=== PATIENT | male | born 1975 | race African-American/Black ===

== ENCOUNTER 2016-12-12 11:30 | Emergency (ER) | payer OTHER ==
[~2016-12-12] VITALS: Ht 177.8 cm; Wt 108.0 kg
[~2016-12-12 11:30] MED LIST: ALBU17IN INH; AMLO10TA2 PO; ASPI325T PO; FLEC1TAB PO; FLEC50TA PO; LISI-538 PO
[2016-12-12 11:37] VITALS: BP 151/84
[2016-12-12] MEDS ORDERED: LISI40TAB PO (11:44)
[2016-12-12] MEDS ORDERED: ZOLM2.5T PO (11:44)
[2016-12-12] MEDS ORDERED: OMEP20CA3 PO (11:44)
[2016-12-12] MEDS ORDERED: MIRA3350 PO (11:44)
[2016-12-12] MEDS ORDERED: TOPI1CAP4 PO (11:44)
[2016-12-12] MEDS ORDERED: VITASPR PO (11:44)
[2016-12-12] MEDS ORDERED: PRED20TA PO (12:08)
[2016-12-12] MEDS ORDERED: NAPR500T PO (12:08)
[2016-12-12] MEDS ORDERED: NAPROXEN 250 MG TAB PO ONE (12:15)
== END 2016-12-12 12:29 | disposition home or self-care (01) ==
LOC: M ED 12:02
DX: J01.90 Acute sinusitis, unspecified (principal); G43.909 Migraine, unspecified, not intractable, without status migrainosus; Z79.899 Other long term (current) drug therapy; Z79.82 Long term (current) use of aspirin; Z91.013 Allergy to seafood

== ENCOUNTER → 2017-01-03 | Outpatient (CLI) | payer OTHER ==
[~2017-01-03] MED LIST changes: +LISI40TAB PO; +MIRA3350 PO; +NAPR500T PO; +OMEP20CA3 PO; +PRED20TA PO; +TOPI1CAP4 PO; +VITASPR PO; +ZOLM2.5T PO
--- NOTE | 2017-01-03 18:04 | REP ---
MAXILLOFACIAL CT WITHOUT CONTRAST: HISTORY: Chronic sinusitis. Mild mucosal thickening is present in the left maxillary sinus. Minimal mucosal thickening is present in the ethmoid, left sphenoid and right maxillary sinuses. The remaining sinuses are clear. Mucosal thickening involves the left ostiomeatal unit. The right ostiomeatal unit is patent. The middle and inferior nasal turbinates are partially paradoxical. There is mario bullosa of the left middle nasal turbinate. The nasal septum is midline. A small spur is present arising from the right side of the nasal septum. The cribriform plate, medial london of the orbits and optic canals are intact. The carotid canals form a segment of the posterolateral london of the sphenoid sinus. The sphenoid sinus septum inserts into the right internal carotid canal wall. Soft tissue density is present in the left nasal passage consistent with polyps. IMPRESSION: 1. Sinus mucosal thickening as described above. 2. There is soft tissue density in the left nasal passage consistent with polyps. Signed by Papito Amezquita MD 01/03/2017 06:09 P
== END ==
LOC: M RAD 17:11
PROVIDERS: ATTEND Otolaryngology
DX: J32.4 Chronic pansinusitis (principal)

== ENCOUNTER → 2017-06-19 | Outpatient (CLI) | payer OTHER ==
[~2017-06-19] MED LIST changes: +CHLO125TA PO; +FISH1000 PO; +NEXI1CAP4 PO; +VITA100067 PO; +VITA250011 SL
--- NOTE | 2017-06-20 11:47 | REP ---
Radionuclide thyroid uptake and scan: History: Hyperthyroidism. Technique: 320.0 Microcuries of I 123 sodium iodide is ingested and functional thyroid images and thyroid uptake values are acquired. Findings: 24 uptake value is low at 9.4% (25 35%). Functional thyroid images show no cold or warm nodule. Left lobe is a little larger than right. Overall decreased uptake. Impression: No cold or warm nodule seen. Decreased thyroid uptake. Signed by Urbano Gunter MD 06/20/2017 11:39 A
== END ==
LOC: M RAD 08:35
PROVIDERS: ATTEND Family Medicine
DX: E05.90 Thyrotoxicosis, unspecified without thyrotoxic crisis or storm (principal)
CPT/HCPCS: 78012; A9516

== ENCOUNTER → 2018-02-28 | Outpatient (CLI) | payer OTHER | LOC: M WUC 11:11 | DX: M79.672 Pain in left foot (principal) | CPT/HCPCS: 73630 ==

== ENCOUNTER → 2018-03-19 | Outpatient (CLI) | payer OTHER | LOC: M RAD 07:41 | DX: I10 Essential (primary) hypertension (principal) ==

== ENCOUNTER 2018-04-30 16:08 | Emergency (ER) | payer OTHER ==
[2018-04-30] MEDS: NS 1,000 ML IV (17:57)
[2018-04-30] MEDS: diphenhydrAMINE INJ 50MG/ML VIAL (J1200) IV (17:57)
[2018-04-30] MEDS: METOCLOPRAMIDE INJ 10MG/2ML VIAL (J2765) IV (17:57)
[2018-04-30] MEDS: KETOROLAC 30 MG/ML VIAL (J1885) IV (17:58)
[2018-04-30 18:01] LABS: BASO % 0.6 % (0.0-1.0); EOS # 0.4 10^3/uL (0.0-0.50); HEMATOCRIT 46.8 % (42.0-52.0); IMMATURE GRANULOCYTE % 0.2 % (0-3.0); LYMPH # 1.9 10^3/uL (1.5-4.5); LYMPH % 36.1 % (24.0-44.0); MEAN CORPUSCULAR HEMOGLOBIN 25.5 pg (27.0-33.0); MEAN CORPUSCULAR HGB CONC 32.1 g/dl (32.0-36.5); MEAN CORPUSCULAR VOLUME 79.6 fl (80.0-96.0); MONO # 0.7 10^3/uL (0.0-0.8); MONO % 13.9 % (0.0-5.0); NEUTROPHILS # 2.2 10^3/uL (1.8-7.7); NEUTROPHILS % 41.2 % (36.0-66.0); PLATELET COUNT, AUTOMATED 186 10^3/uL (150-450); RED BLOOD COUNT 5.88 10^6/uL (4.30-6.10); RED CELL DISTRIBUTION WIDTH 15.9 % (11.5-14.5); WHITE BLOOD COUNT 5.3 10^3/uL (4.0-10.0)
[2018-04-30 18:40] LABS: ANION GAP 9 MEQ/L (8-16); BLOOD UREA NITROGEN 21 MG/DL (7-18); CALCIUM LEVEL 8.4 MG/DL (8.5-10.1); CARBON DIOXIDE LEVEL 29 MEQ/L (21-32); CHLORIDE LEVEL 106 MEQ/L (98-107); CREATININE FOR GFR 1.44 MG/DL (0.70-1.30); ETHYL ALCOHOL (ETHANOL) 0.003 % (0.000-0.010); GLOMERULAR FILTRATION RATE > 60.0 (>60); GLUCOSE, FASTING 92 MG/DL (70-100); POTASSIUM SERUM 3.9 MEQ/L (3.5-5.1); SALICYLATE LEVEL < 1.7 MG/DL (5.0-30.0); SODIUM LEVEL 144 MEQ/L (136-145)
[2018-04-30 18:50] LABS: ACETAMINOPHEN LEVEL < 2.0 UG/ML (10.0-30.0)
== END 2018-04-30 19:32 | disposition home or self-care (01) ==
LOC: M ED 16:08
DX: G43.409 Hemiplegic migraine, not intractable, without status migrainosus (principal); I48.91 Unspecified atrial fibrillation; I10 Essential (primary) hypertension; E78.00 Pure hypercholesterolemia, unspecified; J45.909 Unspecified asthma, uncomplicated; Z72.0 Tobacco use; Z79.82 Long term (current) use of aspirin; Z79.899 Other long term (current) drug therapy; Z91.013 Allergy to seafood
CPT/HCPCS: J1200

== ENCOUNTER → 2018-07-12 | Outpatient (CLI) | payer OTHER | LOC: M RAD 16:54 | DX: R91.1 Solitary pulmonary nodule (principal) | CPT/HCPCS: 71250 ==

== ENCOUNTER 2018-07-20 14:51 | Emergency (ER) | payer OTHER ==
[2018-07-20] MEDS: ONDANSETRON 4 MG ORAL DISINTEGRATING TAB (Q0162 PER 1MG) PO (16:40)
[2018-07-20 16:47] LABS: HEMATOCRIT 47.5 % (42.0-52.0); HEMOGLOBIN 15.2 g/dl (13.5-17.5); MEAN CORPUSCULAR HEMOGLOBIN 25.3 pg (27.0-33.0); PLATELET COUNT, AUTOMATED 242 10^3/uL (150-450); RED BLOOD COUNT 6.01 10^6/uL (4.30-6.10); RED CELL DISTRIBUTION WIDTH 15.4 % (11.5-14.5); WHITE BLOOD COUNT 7.4 10^3/uL (4.0-10.0)
[2018-07-20 17:06] LABS: ADD MANUAL DIFFER YES; DIFF SLIDE NUMBER 175; POSITIVE MORPH POS FLAG
[2018-07-20 17:09] LABS: ALBUMIN 4.1 GM/DL (3.2-5.2); ALBUMIN/GLOBULIN RATIO 1.24 (1.00-1.93); ALKALINE PHOSPHATASE 53 U/L (45-117); ALT/SGPT 44 U/L (12-78); AMYLASE 44 U/L (25-115); ANION GAP 8 MEQ/L (8-16); AST/SGOT 27 U/L (7-37); BILIRUBIN,DIRECT < 0.1 MG/DL (0.0-0.2); BILIRUBIN,TOTAL 0.3 MG/DL (0.2-1.0); BLOOD UREA NITROGEN 17 MG/DL (7-18); CALCIUM LEVEL 9.2 MG/DL (8.5-10.1); CARBON DIOXIDE LEVEL 31 MEQ/L (21-32); CHLORIDE LEVEL 105 MEQ/L (98-107); CREATININE FOR GFR 1.27 MG/DL (0.70-1.30); GLOMERULAR FILTRATION RATE > 60.0 (>60); GLUCOSE, FASTING 92 MG/DL (70-100); LIPASE 188 U/L (73-393); POTASSIUM SERUM 4.4 MEQ/L (3.5-5.1); SODIUM LEVEL 144 MEQ/L (136-145); TOTAL PROTEIN 7.4 GM/DL (6.4-8.2)
[2018-07-20 17:26] LABS: ANISOCYTOSIS 1+; ATYPICAL LYMPH 9 % (0-5); BASOPHILS 1 % (0-4); EOSINOPHILS 5 % (0-5); LYMPHOCYTES 35 % (16-52); MICROCYTOSIS 1+; MONOCYTES 5 % (0-8); NEUTROPHILS 45 % (35-75); PLATELET ESTIMATE NORMAL (NORMAL)
== END 2018-07-20 17:49 | disposition home or self-care (01) ==
LOC: M ED 14:51
DX: R11.0 Nausea (principal); R19.7 Diarrhea, unspecified; R51 Headache; I10 Essential (primary) hypertension; I48.91 Unspecified atrial fibrillation; J45.909 Unspecified asthma, uncomplicated; G47.30 Sleep apnea, unspecified; R09.81 Nasal congestion; K21.9 Gastro-esophageal reflux disease without esophagitis; F43.10 Post-traumatic stress disorder, unspecified; Z79.82 Long term (current) use of aspirin; Z79.899 Other long term (current) drug therapy; Z91.013 Allergy to seafood
CPT/HCPCS: Q0162

== ENCOUNTER → 2018-07-22 | Outpatient (REF) | payer OTHER | LOC: M LAB REF 19:20 | DX: R19.7 Diarrhea, unspecified (principal) ==

== ENCOUNTER 2018-11-27 11:23 | Emergency (ER) | payer OTHER ==
[~2018-11-27] VITALS: Ht 177.8 cm; Wt 104.5 kg
[~2018-11-27 11:23] MED LIST changes: +ADV250INH INH; -AMLO10TA2 PO; +AMLO10TA5 PO; +FLEC50HA PO; -FLEC50TA PO; +LISI40TA PO; -LISI40TAB PO; +LOSA100T50 PO; +MELO15TA28 PO; +NAPR-50 PO; -NAPR500T PO; +OMEP40CA2 PO; +REGL10TA6 PO; +VITA500T PO; +ZOFR4TAB14 PO
[2018-11-27] MEDS ORDERED: VIAG100T (11:33)
[2018-11-27] MEDS ORDERED: OMEP20CA3 (11:33)
[2018-11-27] MEDS ORDERED: TOPI1CAP8 PO (11:33)
[2018-11-27 12:15] LABS: BASO % 0.5 % (0.0-1.0); EOS # 0.2 10^3/uL (0.0-0.50); EOS % 2.7 % (0.0-3.0); HEMATOCRIT 46.9 % (42.0-52.0); HEMOGLOBIN 15.5 g/dl (13.5-17.5); LYMPH # 3.3 10^3/uL (1.5-4.5); MEAN CORPUSCULAR HEMOGLOBIN 25.5 pg (27.0-33.0); MONO # 0.4 10^3/uL (0.0-0.8); MONO % 6.7 % (0.0-5.0); NEUTROPHILS # 2.3 10^3/uL (1.8-7.7); NEUTROPHILS % 36.9 % (36.0-66.0); PLATELET COUNT, AUTOMATED 218 10^3/uL (150-450); RED BLOOD COUNT 6.09 10^6/uL (4.30-6.10); WHITE BLOOD COUNT 6.3 10^3/uL (4.0-10.0)
--- NOTE | 2018-11-27 12:27 | REP ---
Clinical: Migraine headaches with dizziness . Comparison: 04/30/2018 . Findings: The ventricles, sulci, and cisterns are normal in position and appearance. Bunch-white differentiation is maintained. No acute intracranial hemorrhage, mass/mass effect, pathology or trauma/injury. No evidence for acute infarction. No extra-axial fluid collection. Calvarium is intact. Paranasal sinuses and mastoid air cells are clear. Impression: Normal noncontrast head CT. No evidence for acute intracranial pathology or trauma/injury. Electronically Signed by Angel Brunner MD 11/27/2018 12:18 P
[2018-11-27 12:41] LABS: ALBUMIN 4.5 GM/DL (3.2-5.2); ALT/SGPT 53 U/L (12-78); AMYLASE 47 U/L (25-115); BILIRUBIN,DIRECT 0.2 MG/DL (0.0-0.2); BILIRUBIN,TOTAL 0.6 MG/DL (0.2-1.0); BLOOD UREA NITROGEN 16 MG/DL (7-18); CALCIUM LEVEL 9.1 MG/DL (8.5-10.1); CARBON DIOXIDE LEVEL 31 MEQ/L (21-32); CHLORIDE LEVEL 103 MEQ/L (98-107); CREATININE FOR GFR 1.24 MG/DL (0.70-1.30); GLOMERULAR FILTRATION RATE > 60.0 (>60); GLUCOSE, FASTING 88 MG/DL (70-100); LIPASE 187 U/L (73-393); POTASSIUM SERUM 3.9 MEQ/L (3.5-5.1); SODIUM LEVEL 140 MEQ/L (136-145); TOTAL PROTEIN 7.8 GM/DL (6.4-8.2)
[2018-11-27 12:44] LABS: INFLUENZA A AMPLIFICATION NEGATIVE (NEGATIVE); INFLUENZA B AMPLIFICATION NEGATIVE (NEGATIVE)
[2018-11-27 13:28] VITALS: BP 168/90
--- NOTE | 2018-11-27 21:04 | ECGEPIP ---
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
== END 2018-11-27 13:29 | disposition home or self-care (01) ==
LOC: M ED 11:23
DX: G43.909 Migraine, unspecified, not intractable, without status migrainosus (principal); I10 Essential (primary) hypertension; I48.91 Unspecified atrial fibrillation; K21.9 Gastro-esophageal reflux disease without esophagitis; F43.10 Post-traumatic stress disorder, unspecified; Z79.899 Other long term (current) drug therapy; Z79.82 Long term (current) use of aspirin; Z91.013 Allergy to seafood

== ENCOUNTER 2020-03-19 12:31 | Emergency (ER) | payer OTHER ==
[~2020-03-19] VITALS: Ht 170.2 cm; Wt 117.0 kg
[~2020-03-19 12:31] MED LIST changes: -AMLO10TA5 PO; +AMLO1TAB25 PO; +ASPI-1 PO; -ASPI325T PO; -NAPR-50 PO; +NAPR-837 PO; +OMEP1CAP73; +OMEP1CAP73 PO; -OMEP20CA3 PO; -OMEP40CA2 PO; +OMEP40CA97 PO; +TOPI1CAP8 PO; +VIAG100T; +VITA-243 PO; -VITA500T PO; -ZOLM2.5T PO; +ZOLM2.5T20 PO
[2020-03-19] MEDS ORDERED: FERR1TAB8 PO (13:10)
[2020-03-19] MEDS ORDERED: AMLO1TAB24 (13:10)
[2020-03-19] MEDS ORDERED: ATOR1TAB19 (13:10)
[2020-03-19] MEDS ORDERED: NITROGLYCERIN 0.4 MG SUBL TABLET SL PRN (13:15)
[2020-03-19 13:17] LABS: BASO % 0.4 % (0.0-1.0); EOS # 0.3 10^3/uL (0.0-0.5); EOS % 4.3 % (0.0-3.0); HEMATOCRIT 52.4 % (42.0-52.0); HEMOGLOBIN 16.8 g/dl (13.5-17.5); LYMPH # 3.2 10^3/uL (1.5-5.0); LYMPH % 44.6 % (24.0-44.0); MEAN CORPUSCULAR HEMOGLOBIN 25.1 pg (27.0-33.0); MEAN CORPUSCULAR HGB CONC 32.1 g/dl (32.0-36.5); MEAN CORPUSCULAR VOLUME 78.2 fl (80.0-96.0); MONO # 0.5 10^3/uL (0.0-0.8); MONO % 7.4 % (0.0-5.0); NEUTROPHILS # 3.1 10^3/uL (1.5-8.5); NEUTROPHILS % 43.2 % (36.0-66.0); PLATELET COUNT, AUTOMATED 235 10^3/uL (150-450); WHITE BLOOD COUNT 7.2 10^3/uL (4.0-10.0)
[2020-03-19 13:28] VITALS: BP 149/95
[2020-03-19 13:36] LABS: BLOOD UREA NITROGEN 20 MG/DL (7-18); CALCIUM LEVEL 9.6 MG/DL (8.5-10.1); CARBON DIOXIDE LEVEL 31 MEQ/L (21-32); CHLORIDE LEVEL 102 MEQ/L (98-107); CREATININE FOR GFR 1.37 MG/DL (0.70-1.30); GLOMERULAR FILTRATION RATE > 60.0 (>60); GLUCOSE, FASTING 97 MG/DL (70-100); POTASSIUM SERUM 3.6 MEQ/L (3.5-5.1); SODIUM LEVEL 137 MEQ/L (136-145)
[2020-03-19] MEDS ORDERED: ACETAMINOPHEN 325 MG TAB PO ONE (13:45)
[2020-03-19 13:46] LABS: FREE T4 0.98 NG/DL (0.76-1.46); MAGNESIUM LEVEL 2.2 MG/DL (1.8-2.4); THYROID STIMULATING HORMONE 4.56 uIU/ML (0.358-3.740)
--- NOTE | 2020-03-19 14:21 | REP ---
REASON FOR EXAM: Chest pain. The latest prior for comparison is 04/16/2018. FINDINGS: The technique utilized in obtaining the radiograph has magnified the cardiac silhouette and accentuated the interstitial markings. The superior mediastinal structures are midline. The cardiac silhouette is unremarkable in size, shape, and position. The diaphragmatic surfaces of the lungs are regular, and the costophrenic angles are clear. The pulmonary osullivan are clear. The imaged osseous structures are intact. IMPRESSION: There is no acute cardiopulmonary disease. Electronically Signed by Mata Driscoll DO 03/19/2020 03:05 P
[2020-03-19] MEDS ORDERED: MORPHINE 2 MG/ML 1ML VIAL (J2270) IV PRN (15:45)
[2020-03-19 16:00] LABS: ALBUMIN 4.5 GM/DL (3.2-5.2); BILIRUBIN,DIRECT 0.2 MG/DL (0.0-0.2); BILIRUBIN,TOTAL 0.5 MG/DL (0.2-1.0); TOTAL PROTEIN 7.6 GM/DL (6.4-8.2)
[2020-03-19 17:41] LABS: ERYTHROCYTE SEDIMENTATION RATE 1 mm/hr (0-15)
[2020-03-19 19:50] VITALS: BP 145/85
--- NOTE | 2020-03-20 08:03 | ECGEPIP ---
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
--- NOTE | 2020-03-20 08:04 | ECGEPIP ---
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
--- NOTE | 2020-03-20 08:04 | ECGEPIP ---
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
--- NOTE | 2020-03-20 08:06 | ECGEPIP ---
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
--- NOTE | 2020-03-20 08:10 | ECGEPIP ---
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
== END 2020-03-19 20:00 | disposition home or self-care (01) ==
LOC: M ED 12:31
DX: R07.9 Chest pain, unspecified (principal); I10 Essential (primary) hypertension; F43.10 Post-traumatic stress disorder, unspecified; Z79.899 Other long term (current) drug therapy; Z86.79 Personal history of other diseases of the circulatory system; Z88.8 Allergy status to other drugs, medicaments and biological substances; Z91.013 Allergy to seafood